=== PATIENT | female | born 1935 | race Caucasian/White ===

== ENCOUNTER 2016-03-12 09:44 | Inpatient (IN) | payer MEDICARE, OTHER ==
[~2016-03-12] VITALS: Ht 157.5 cm; Wt 76.0 kg
[2016-03-12 10:19] LABS: BASOPHILS 0.3 % (0.0-2.0); EOSINOPHILS 0 % (0-7); HEMATOCRIT 30.6 % (36.0-48.0); HEMOGLOBIN 10.5 g/dL (12-16); IMMATURE GRANULOCYTES 0.6 % (0-5); MCH 32.2 pg (26.0-34.0); MCHC 34.3 g/dL (31.0-37.0); MCV 93.9 fL (80.0-100.0); MEAN PLATELET VOLUME 8.9 fL (7.4-10.4); MONOCYTES 3.5 % (2-11); NEUTROPHILS 93.6 % (40-80); PLATELET COUNT 325 10x3/uL (130-400); RBC 3.26 10x6/uL (4.00-5.40); RDW 12.8 % (11.5-14.5); WBC 19.5 10x3/uL (4.8-10.8)
[2016-03-12 10:31] LABS: ALBUMIN 2.6 g/dL (3.4-5.0); ANION GAP 13.3 mmol/L (8-16); BILIRUBIN - TOTAL 1.5 mg/dL (0.2-1.3); CALCIUM 8.9 mg/dL (8.5-10.1); CARBON DIOXIDE 25.5 mmol/L (21.0-32.0); POTASSIUM - SERUM 3.8 mmol/L (3.5-5.1)
[2016-03-12 11:16] LABS: UDS - AMPHET NEGATIVE QUAL (NEGATIVE); UDS - BARB NEGATIVE QUAL (NEGATIVE); UDS - BENZO NEGATIVE QUAL (NEGATIVE); UDS - COCAINE NEGATIVE QUAL (NEGATIVE); UDS - METH NEGATIVE QUAL (NEGATIVE); UDS - OPIATE NEGATIVE QUAL (NEGATIVE); UDS - PCP NEGATIVE QUAL (NEGATIVE); UDS - THC NEGATIVE QUAL (NEGATIVE)
[2016-03-12 11:31] LABS: APPEARANCE HAZY (CLEAR); BACTERIA MANY /hpf (NONE SEEN); BILIRUBIN NEGATIVE (NEGATIVE); COLOR DK YELLOW (YELLOW); EPITHELIAL CELLS OCC /hpf (0-5); GLUCOSE NEGATIVE (NEGATIVE); KETONE NEGATIVE (NEGATIVE); LEUKOCYTE ESTERASE 2+ (NEGATIVE); MUCUS <1+ /lpf (NONE SEEN); NITRITE NEGATIVE (NEGATIVE); PROTEIN 2+ mg/dL (NEGATIVE); UROBILINOGEN NORMAL (NORMAL); WHITE CELLS - URINE >50 /hpf (0-5)
[2016-03-12 11:44] LABS: MAGNESIUM - SERUM 1.2 mg/dL (1.8-2.4)
[2016-03-12 11:52] LABS: TROPONIN-I 0.256 ng/mL (0.000-0.060)
--- NOTE | 2016-03-12 14:10 | NUR ---
ARRIVE TO ROOM VIA STRETCHER FROM ER ACCOMPANIED BY NURSE AND FAMILY MEMBERS. ALERT AND ORIENTED X4. HAVING PROBLEMS SPEAKING. DENIES SOB OR PAIN. RECIEVES LOVENOX INJ. CONTINUE PLAN OF CARE AND ADMISSION PROCESS. BED ALARM ON. TWO SIDERAILS UP. UP WITH ASSIST. HAS CANE AT HOME.
[2016-03-12] MEDS ORDERED: BYSTOLIC10 MG PO (14:16)
[2016-03-12] MEDS ORDERED: SYNTHROID100 MCG PO (14:20)
[2016-03-12] MEDS ORDERED: CATAPRES0.1 MG PO (14:22)
[2016-03-12] MEDS ORDERED: NEXIUM20 MG PO (14:22)
[2016-03-12] MEDS ORDERED: CELEBREX200 MG PO (14:23)
[2016-03-12 14:58] VITALS: BP 112/61; BMI 30.6
[2016-03-12 20:50] VITALS: BP 117/54
[2016-03-13 00:37] VITALS: BP 106/73
[2016-03-13 04:31] VITALS: BP 134/76
[2016-03-13 05:20] LABS: BASOPHILS 0.4 % (0.0-2.0); EOSINOPHILS 0.2 % (0-7); HEMATOCRIT 29.5 % (36.0-48.0); HEMOGLOBIN 9.7 g/dL (12-16); IMMATURE GRANULOCYTES 0.3 % (0-5); LYMPHOCYTES 8.2 % (15-50); MCH 31.9 pg (26.0-34.0); MCHC 32.9 g/dL (31.0-37.0); MEAN PLATELET VOLUME 9.1 fL (7.4-10.4); MONOCYTES 8.5 % (2-11); NEUTROPHILS 82.4 % (40-80); PLATELET COUNT 274 10x3/uL (130-400); RBC 3.04 10x6/uL (4.00-5.40)
[2016-03-13 05:46] LABS: ANION GAP 12.1 mmol/L (8-16); CALCIUM 8.5 mg/dL (8.5-10.1); CARBON DIOXIDE 27.8 mmol/L (21.0-32.0); MAGNESIUM - SERUM 1.3 mg/dL (1.8-2.4); POTASSIUM - SERUM 3.9 mmol/L (3.5-5.1)
--- NOTE | 2016-03-13 07:33 | HP ---
PATIENT: FRANK CINTRON MEDICAL RECORD: [id number] ACCOUNT: [id number] LOCATION:[address] : 33 ADMISSION DATE: 03/12/16 HISTORY AND PHYSICAL EXAMINATION REASON FOR ADMISSION: Confusion and fever. HISTORY OF PRESENT ILLNESS: The patient is an 81-year-old female and previously in good health who had a UTI last week. She finished Macrodantin with improvement in symptoms. She felt well until last night, she had been nauseated and this morning was vomiting and confused. She complained of some vague right flank pain. She was in the Emergency Room where she was febrile with temperature of 101 and gross pyuria. Her daughter says she has little trouble expressing herself this morning, understands everything, but has little trouble finding words. She has no other neurologic deficits. Her daughter states she had urosepsis a year ago and had some neurologic events that resolved with improvement with antibiotics. She never had a renal workup previously. PAST MEDICAL HISTORY: Essential hypertension, hypothyroidism, osteoarthritis of knees postmenopausal and sepsis in 2014 with cellulitis. PAST SURGICAL HISTORY: She had left total hip replacement in 2005. SOCIAL HISTORY: , recently moved here to live close to her daughter from [place], nonsmoker and drinks occasional glass of wine. ALLERGIES: NORVASC. FAMILY HISTORY: Osteoarthritis in both parents. Father had COPD. Mother with hypertension, COPD and pancreatic cancer. Brother with lung cancer. HOME MEDICATIONS: Bystolic ____ a day, Celebrex 200 mg daily, clonidine 0.1 p.r.n. systolic pressure greater than 170, Lasix 40 mg p.o. q.a.m., GNP vitamin D 400 units p.o. daily, B12 500 mcg p.o. daily, HCTZ 12.5 mg p.o. q.a.m., Synthroid 100 mcg p.o. daily, losartan 100 mg p.o. daily, Nexium 40 mg a day, PreserVision AREDS tablet 1 p.o. b.i.d. and tobramycin 0.3% ophthalmic drops to eye p.r.n. REVIEW OF SYSTEMS: GENERAL: She has felt fatigued and fever for the last 12 hours with some confusion. No headache. HEENT: No recent visual change, sinus congestion or sore throat. RESPIRATORY: No SOB or cough. CARDIAC: No exertional chest pain, claudication or edema. GASTROINTESTINAL: She has had some nausea with intermittent vomiting in the last 12 hours. No melena, hematemesis or abdominal pain. GENITOURINARY: She has had urinary urgency without dysuria or ____. Denies hematuria. MUSCULOSKELETAL: Chronic arthralgias in both of her knees. ENDOCRINE: Denies polyuria, polydipsia, heat or cold intolerance. NEUROLOGIC: She has some confusion and trouble finding words this morning, but no neurologic deficits appreciated. Her daughter states she has similar symptoms with her sepsis last year. INTEGUMENT: Denies rash or itching. HISTORY AND PHYSICAL [id number] ABDULAZIZFRANK PHYSICAL EXAMINATION: VITAL SIGNS: Blood pressure 100/60, heart rate is 90 and regular, temperature 101 degrees Fahrenheit. GENERAL: The patient is in no acute distress. HEENT: She is normocephalic. Eyes are clear. Sclerae nonicteric. Mucous membranes somewhat dry. No oral lesions noted. NECK: Supple, without bruits or JVD. CHEST: Clear without wheeze or rales. HEART: Regular rate without MGR. PMI appropriate. ABDOMEN: Soft, mildly obese. She is somewhat tender in the right flank. Left flank is unremarkable. Bowel sounds are active. Abdomen is nontender. GENITOURINARY: Unremarkable. PELVIC: Deferred. EXTREMITIES: She has crepitus in both knees with flexion and extension. No edema is appreciated. SKIN: Shows no petechiae or rash. IMAGING: Chest x-ray shows no acute cardiopulmonary disease. LABORATORY DATA: White count was 19.5 with 94% neutrophils, H&H is 10.5 and 30.6 respectively. Chemistry: Sodium is low at 133. GFR is 56 cc per minute. Glucose 107. Lactic acid is high at 2.9 initially and now is 1.1 three hours later. Calcium is normal. Magnesium is low at 1.2. Alkaline phosphatase is 179. Troponin is 0.256. ProBNP is 5906. Urinalysis is hazy with greater than 50 white cells per high power field, many bacteria. Urine drug screen is negative. ASSESSMENT: 1. Urinary tract infection, possibly urosepsis. 2. Hypomagnesemia. 3. Hypotension with history of hypertension. 4. Mild expressive aphasia, positive sepsis and lactic acidosis. PLAN: Hold antihypertensives. We will give IV fluids tonight. Culture blood and urine. She was placed on Levaquin and gentamicin. We will schedule renal ultrasound in the morning to rule out pyelonephritis. Additionally, if her vital signs did not improve, we will schedule CT of brain. Results and course discussed with the patient and daughter. TRANSINT:[id number] Voice Confirmation ID: [id number] DOCUMENT ID: [id number] OLE OTOOLE MD at 0733 CC: [id number] DICTATION DATE: 03/12/161815 SALES SUPPORT ENGINEER: 03/12/16[address] [facility] [address] [place] [address]
[2016-03-13 08:11] LABS: % SATURATION 8 % (15-55); IRON 19 ug/dl (35-150); TOTAL IRON BIND CAPACITY 212 ug/dl (260-445); UNSAT IRON BIND CAPACITY 193 ug/dl (150-375)
[2016-03-13 08:21] LABS: FERRITIN 356 ng/mL (3-244); LDH 175 U/L (81-234)
[2016-03-13 08:40] VITALS: BP 148/70
--- NOTE | 2016-03-13 08:52 | NUR ---
IV resited to different vein in left hand due to swelling and pain at site. Jennifer Saldivar RN
--- NOTE | 2016-03-13 10:45 | NUR ---
RESTING QUIETLY WITHOUT DISTRESS. ASSESSMENT DONE. WILL CONTINUE TO MONITOR
[2016-03-13 12:38] VITALS: BP 92/45
--- NOTE | 2016-03-13 13:35 | NUR ---
SITTING UP IN BED. ALTAGRACIA WELL. FAMILY AT BEDSIDE.
[2016-03-13 13:55] VITALS: Ht 157.5 cm; Wt 76.0 kg
--- NOTE | 2016-03-13 15:16 | NUR ---
PATIENT RESTING IN HER BED, HOB UP 45 DEGREES. INTRODUCED SELF AND DISCUSSED POC WITH DAUGHTER WHO IS AT THE BEDSIDE. DAUGHTER PROFESSES A GREAT IMPROVEMENT IN MOTHER'S COGNITIVE ABILITY FROM YESTERDAY. SHE IS ANXIOUS TO HAVE HER WALK WITH PT. CALVERT CATHETER IS PATENT. IVF INFUSING PER ORDERS.
[2016-03-13 16:07] VITALS: BP 121/61
--- NOTE | 2016-03-13 19:03 | NUR ---
PATIENT ASSISTED UP TO THE BEDSIDE CHAIR. HER IVF CONTINUE TO INFUSE PER ORDERS. SHE IS WITHOUT C/O AT THIS TIME. IV PUMP DOES BEEP FREQUENTLY, SITED IN HER LEFT HAND. WILL CONSIDER RESITING IT.
[2016-03-13 22:30] VITALS: BP 124/70
--- NOTE | 2016-03-13 22:41 | NUR ---
PT ASSESSMENT COMPLETED PT LAYING IN BED NO DISTRESS OBSERVED AT THIS TIME PIV INFUSING NS @ 100 ORDERED 22G TO RIGHT HAND, RESPERATIONS EVEN AND UNLABORED ON ROOM AIR, LUNG SOUNDS CLEAR BILATERAL ALL LOBES, BED LOW AND LOCKED SRX2 AND CALL LIGHT IN REACH WILL CONTINUE TO MONITOR
[2016-03-14 02:50] VITALS: BP 130/69
[2016-03-14 06:05] VITALS: BP 148/66
[2016-03-14 06:52] LABS: ANION GAP 11.8 mmol/L (8-16); CARBON DIOXIDE 26.9 mmol/L (21.0-32.0); CREATININE - SERUM 0.9 mg/dL (0.6-1.3); MAGNESIUM - SERUM 1.5 mg/dL (1.8-2.4); POTASSIUM - SERUM 3.7 mmol/L (3.5-5.1)
--- NOTE | 2016-03-14 07:25 | NUR ---
PT SITTING UP IN BED SLEEPING NO S/S DISTRESS WILL CONTINUE TO MONITOR.
[2016-03-14 08:17] LABS: FOLATE (FOLIC ACID) - SERUM 7.3 ng/mL (>3.0)
[2016-03-14 08:21] VITALS: BP 130/76
--- NOTE | 2016-03-14 09:15 | NUR ---
INITIATED BLADDER TRAINING. PT TO LET ME KNOW WHEN SHE HAS THE URGE TO URINATE. WILL CONTINUE BLADDER TRAINING THROUGHOUT THE DAY.
--- NOTE | 2016-03-14 11:15 | NUR ---
RELEASED PT CALVERT CLAMP, LEAVING UNCLAMPED FOR BLADDER TO DRAIN. PT DID NOT HAVE URGE TO URINATE.
--- NOTE | 2016-03-14 12:00 | NUR ---
RECLAMPED PT CALVERT TO CONTINUE BLADDER TRAINING.
[2016-03-14 12:04] VITALS: BP 141/69
--- NOTE | 2016-03-14 13:00 | NUR ---
RELEASED CALVERT CLAMP TO ALLOW BLADDER TO DRAIN. PT DID NOT HAVE URGE.
--- NOTE | 2016-03-14 13:39 | NUR ---
RECLAMPED CALVERT TO CONTINUE BLADDER TRAINING.
--- NOTE | 2016-03-14 15:30 | NUR ---
REMOVED CLAMP SO BLADDER CAN EMPTY.
--- NOTE | 2016-03-14 15:40 | NUR ---
PT SITTING UP TO CHAIR PT HAD A GOOD WAKL WITH THERAPY TODAY. SHE DENIES NEEDS AT THIS TIME. JUSTINE CYCLE TOURING GUIDE ASKED PT EARLIER IF SHE WANTED TO BE RESITED, SHE REFUSED. PT FAMILY HAS BEEN CO THAT THE IV PUMP HAS BEEN BEEPING BECAUSE OF PT IV SITE. NO FAMILY HERE NOW. WILL CONTINUE TO MONITOR.
[2016-03-14 15:45] VITALS: BP 135/92
--- NOTE | 2016-03-14 16:00 | NUR ---
CLAMPED CALVERT TO CONTINUE BLADDER TRAINING.
--- NOTE | 2016-03-14 17:05 | NUR ---
UNCLAMPED CALVERT TO EMPTY BLADDER
--- NOTE | 2016-03-14 18:04 | NUR ---
CLAMPED PT CALVERT CATHETER AGAIN TO CONTINUE BLADDER TRAINING SON AT BEDSIDE PT DENIES NEEDS OTHER THAN JELLO, GIVEN.
--- NOTE | 2016-03-14 19:30 | NUR ---
UP TO BR AND BACK TO BED WITH ASSIST OF STAFF AND WALKER. ALTAGRACIA WELL. DID NOT HAVE BM AT THIS TIME. CALVERT CATH REMAIN CLAMPED FOR BLADDER TRAINING. DENIES URGE TO PEE.LEFT HAND SL INTACT WITH NO R/S NOTED AT SITE. CONFUSED, EASILY REORIENTED. ON ROOM AIR. ON LOVENOX, SCDS NOT IN USE. HOB UP SR UP X2, C/L IN REACH. SON VISITING AT BEDSIDE. WILL CONTINUE TO MONITOR.
[2016-03-14 20:00] VITALS: BP 146/89
--- NOTE | 2016-03-14 20:00 | NUR ---
CALVERT UNCLAMPED, WILL LEAVE UNCLSMPED FOR ABOUT 45 MINUTES. ALTAGRACIA WELL. C/L IN REACH.
--- NOTE | 2016-03-14 21:45 | NUR ---
CALVERT RECLAMPED AT THIS TIME. C/L IN REACH.
--- NOTE | 2016-03-14 23:45 | NUR ---
CALVERT CATH UNCLAMPED AT THIS TIME. ALTAGRACIA WELL. C/L IN REACH.
[2016-03-15] VITALS (7 sets, daily range): BP systolic 119–149; BP diastolic 62–87
--- NOTE | 2016-03-15 00:42 | NUR ---
CALVERT CATH RECLAMPED FOR BLADDER TRAINING. ALTAGRACIA WELL. C/L IN REACH.
[2016-03-15 06:43] LABS: ANION GAP 10.3 mmol/L (8-16); CALCIUM 8.1 mg/dL (8.5-10.1); CARBON DIOXIDE 27.3 mmol/L (21.0-32.0); CREATININE - SERUM 0.8 mg/dL (0.6-1.3); MAGNESIUM - SERUM 1.6 mg/dL (1.8-2.4); PHOSPHOROUS 3.5 mg/dL (2.5-4.9); POTASSIUM - SERUM 3.6 mmol/L (3.5-5.1)
[2016-03-15 06:45] LABS: EOSINOPHILS 2.4 % (0-7); HEMATOCRIT 27.5 % (36.0-48.0); IMMATURE GRANULOCYTES 0.2 % (0-5); LYMPHOCYTES 24.3 % (15-50); MCH 31.5 pg (26.0-34.0); MCHC 32.7 g/dL (31.0-37.0); MCV 96.2 fL (80.0-100.0); MEAN PLATELET VOLUME 9.2 fL (7.4-10.4); MONOCYTES 13.1 % (2-11); PLATELET COUNT 328 10x3/uL (130-400); RBC 2.86 10x6/uL (4.00-5.40); RDW 12.8 % (11.5-14.5)
--- NOTE | 2016-03-15 07:15 | NUR ---
RECIEVED REPORT ON PATIENT,PATIENT IS ALERT AND ORIENTED AT THIS TIME. PATIENT HAS A L WRIST IV THAT IS SL AT THIS TIME. PATIENT DENIES ANY NEEDS OR PAIN AT THIS TIME. PATIENT DENIES ANY NEEDS OR PAIN AT THIS TIME. WILL CONT TO MONITOR. BED LOW AND LOCKED. CALL LIGHT IN REACH. CPOC
[2016-03-15 08:15] LABS: HELICOBACTER PYLORI IGG NEGATIVE (NEGATIVE)
--- NOTE | 2016-03-15 08:30 | NUR ---
CONTINUING BLADDER TRAINING WITH PATIENT, EDUCATION GIVEN. CALVERT IS CLAMPED. CPOC
--- NOTE | 2016-03-15 09:30 | NUR ---
MORNING MEDICATION GIVEN, ASSESSMENT DONE. PATIENT DENIES ANY PAIN AT THIS TIME. WILL CONT TO MONITOR PATIENT.
--- NOTE | 2016-03-15 11:00 | NUR ---
PATIENT SITTING UP IN CHAIR AT THIS TIME. DENIES ANY PAIN OR NEEDS. CPOC
--- NOTE | 2016-03-15 12:30 | NUR ---
PATIENT STATED SHE HAS THE URGE TO URINATE. CALVERT UNCLAMPED. PATIENT URINATED 100ML. WILL PULL CALVERT. CPOC
--- NOTE | 2016-03-15 13:15 | NUR ---
PATIENT CALVERT DC, NO COMPLICATIONS. DEFLATED BALLOON WITH 10CC OF SALINE. PATIENT INSTRUCTED ON WHEN SHE HAS THE URGE TO LET US KNOW SO WE CAN HELP HER TO THE RESTROOM. STATES UNDERSTANDING. CPOC
--- NOTE | 2016-03-15 14:00 | NUR ---
Nutrition Follow Up: Chart reviewed. Diet: Regular PO Intake: 45% (3 meal avg) Wt stable I<O +BM 03/14/16 Meds and labs noted Pt with poor po intake at this time. Will send Ensure with meals. Rec continue current diet. RD following.
--- NOTE | 2016-03-15 16:00 | NUR ---
ASSISTED PATIENT TO BATHROOM MIN ASSIST. PATIENT USES WALKER. PATIENT BACK TO CHAIR AT THIS TIME. CPOC
--- NOTE | 2016-03-15 17:48 | NUR ---
PATIENT SITTING UP IN CHAIR EATING DINNER, DENIES ANY PAIN OR NEEDS. CPOC
--- NOTE | 2016-03-15 17:59 | NUR ---
Patient Name: FRANK CINTRON Admission Status: ER Accout number: [id number] Admission Date: 03-12-2016 : 1935 Admission Diagnosis:FEVER, UNSPECIFIED Attending: MARSHA Current LOS: 3 Anticipated DC Date: Planned Disposition: Home Health Service Primary Insurance: MEDICARE A & B Discharge Planning Comments: * Is the patient Alert and Oriented? Yes 0 * How many steps to enter\exit or inside your home? 4 0 * PCP DR. OTOOLE 0 * Pharmacy [facility] 0 * Preadmission Environment Home with Family 0 * ADLs Independent 0 * Equipment Cane Walker 0 * Other Equipment NO MEDICAL EQUIPMENT PROVIDER PREFERENCE 0 * List name and contact numbers for known caregivers / representatives who currently or will assist patient after discharge: CATRINA BERRIOS, DAUGHTER, 0 * Community resources currently utilized None 0 * Please name any agencies selected above. NONE 0 * Additional services required to return to the preadmission environment? No 0 * Can the patient safely return to the preadmission environment? Yes 0 * Has this patient been hospitalized within the prior 30 days at any hospital? No 0 CM MET WITH PT IN ROOM TO DISCUSS DISCHARGE PLANNING AND NEEDS. PT REPORTS LIVING AT HOME INDEPENDENTLY WITH FAMILY. PT REPORTS BEING CAREGIVER FOR HER ELDERLY SISTER IN LAW. PT HAS CANE AND WALKER WITH NO MEDICAL EQUIPMENT PROVIDER. PT HAS NO OUTSIDE SERVICES ASSISTING IN THE HOME. CM DISCUSSED AVAILABILITY OF HOME HEALTH, REHAB SERVICES AND MEDICAL EQUIPMENT. PT REPORTS UNKNOWN DISCHARGE NEEDS, REPORTS HER DAUGHTER WILL PICK HER UP FOR DISCHARGE HOME. PT IS CONSIDERING HOME HEALTH FOR DISCHARGE HOME FOR NURSING AND PHYSICAL THERAPY. CM WILL MAKE ARRANGEMENTS IF PHYSICAN AGREES WITH THE NEED AND PROVIDES ORDERS. Bricklayer: Dheeraj Joseph
--- NOTE | 2016-03-15 19:47 | NUR ---
UP WITH ASSIST TO BR WITH WALKER.
--- NOTE | 2016-03-15 20:48 | NUR ---
HS MEDS GIVEN, PT DENIES PAIN OR NEEDS, BED LOW, CL IN REACH. WILL CONT TO MONITOR.
--- NOTE | 2016-03-16 01:13 | NUR ---
PT RESTING SOUNDLY WITHOUT C/O OR DISTRESS NOTED. CALL LIGHT IS WITHIN REACH. NO NEEDS VOICED. WILL MONITOR.
[2016-03-16 04:00] VITALS: BP 164/93
[2016-03-16 06:53] LABS: BASOPHILS 2.5 % (0.0-2.0); EOSINOPHILS 1.4 % (0-7); HEMATOCRIT 30.2 % (36.0-48.0); IMMATURE GRANULOCYTES 0.4 % (0-5); LYMPHOCYTES 27.8 % (15-50); MCH 31.3 pg (26.0-34.0); MCHC 33.1 g/dL (31.0-37.0); MCV 94.4 fL (80.0-100.0); MEAN PLATELET VOLUME 9.1 fL (7.4-10.4); MONOCYTES 13.3 % (2-11); NEUTROPHILS 54.6 % (40-80); PLATELET COUNT 308 10x3/uL (130-400); RDW 12.7 % (11.5-14.5); WBC 4.9 10x3/uL (4.8-10.8)
[2016-03-16 07:13] LABS: ANION GAP 10.1 mmol/L (8-16); CALCIUM 9.1 mg/dL (8.5-10.1); CARBON DIOXIDE 27.7 mmol/L (21.0-32.0); CREATININE - SERUM 0.9 mg/dL (0.6-1.3); MAGNESIUM - SERUM 1.7 mg/dL (1.8-2.4); POTASSIUM - SERUM 3.8 mmol/L (3.5-5.1)
--- NOTE | 2016-03-16 07:15 | NUR ---
RECEIVED REPORT. ASSUMED CARE OF PATIENT. CALL LIGHT WITH IN REACH. AWAKE, ALERT/ORIENTED. DENIES NEEDS AT THIS TIME. RESP EVEN AND UNLABORED. NO DISTRESS.
[2016-03-16 07:34] VITALS: BP 177/90
--- NOTE | 2016-03-16 07:40 | NUR ---
ASSISTED PATIENT TO RESTROOM. PATIENT ABLE TO AMBULATE WITH WALKER WITH MINIMAL ASSIST. ASSISTED PATIENT BACK TO BED. CALL LIGHT WITH IN REACH. NO DISTRESS.
[2016-03-16 12:13] VITALS: BP 168/90
--- NOTE | 2016-03-16 14:15 | NUR ---
PATIENT OOB TO CHAIR AT BEDSIDE. ASSISTED PATIENT TO RESTROOM AT THIS TIME. PATIENT WITH FEMALE VISITOR AT BEDSIDE. NO DISTRESS.
[2016-03-16 16:19] VITALS: BP 161/88
--- NOTE | 2016-03-16 18:34 | NUR ---
RESTING IN BED WITH EYES CLOSED. CALL LIGHT WITH IN REACH. DENIES NEEDS. NO DISTRESS.
--- NOTE | 2016-03-16 19:34 | NUR ---
RECEIVED REPORT, HELP PT OUT OF RESTROOM,TO CHAIR, IV-L. WRIST- NS@ 30, PT IS A&O, CALL LIGHT IN REACH
[2016-03-16 20:49] VITALS: BP 180/82
--- NOTE | 2016-03-17 00:11 | NUR ---
PT RESTING WITH EYES CLOSED. RESP EVEN AND REGULAR. SR UP X2, CALL LIGHT WITHIN REACH.
[2016-03-17 00:36] VITALS: BP 142/87
--- NOTE | 2016-03-17 01:21 | NUR ---
ASSISTED TO RESTROOM
[2016-03-17 04:39] VITALS: BP 150/91
--- NOTE | 2016-03-17 06:42 | NUR ---
RECEIVED REPORT FROM BUTTONHOLE MAKER HAND NURSE, ELIE YBARRA. PT IN BED, STATES THAT SHE HAD A HEADACHE, WILL CHECK TO SEE IF SHE HAS ANYTHING ORDER. PT DENIES ANY OTHER NEEDS AT THIS TIME. CALL LIGHT IN REACH, NAD NOTED, WILL CONTINUE TO MONITOR.
--- NOTE | 2016-03-17 09:00 | NUR ---
PT IV, LOOKS RED AND IT HURTS TO TOUCH. IV INFILTRATED, D/C LEFT FA IV, TIP INTACT. INFOMRED PT THAT I WAS GOING TO HAVE TO START NEW IV. PT STATES " DO WE HAVE TOO, LAST TIME IT TOOK ABOUT 2 HOURS TO GET THIS IV STARTED". INFORMED PT THAT THE ONLY MEDICATIONS THAT SHE WAS GETTING IV WAS LEVAQUIN, PT STATED IF THAT COULD BE CHANGED TO PILL FORM. I INFOMRED PT THAT I COULD CALL THE DOCTOR AND GET CHANGED FROM IV TO PO. PT STATED "THAT WOULD BE MUCH BETTER". WILL CALL THE DOCTOR AUTO BUMPER STRAIGHTENER LET THEM ABOUT PT'S REQUEST.
--- NOTE | 2016-03-17 09:30 | NUR ---
ADMINISTERED MORNING MEDICATIONS AND HELPED PT TO THE BATHROOM. PT DENIES ANY OTHER NEEDS AT THIS TIME. CALL LIGHT IN REACH, NAD NOTED, WILL CONTINUE TO MONITOR.
[2016-03-17 09:31] VITALS: BP 177/92
--- NOTE | 2016-03-17 11:30 | NUR ---
1117- PAGED THE DOCTOR LOCK AND DAM REPAIRER FOR DR. OTOOLE. WAITING ON HIM TO CALL BACK. 1131- RECEIVED CALL BACK FROM DR. NGUYEN, INFORMED HIM THAT PT'S IV INFILTRATED AND THAT THE ONLY THING SHE HAS IV IS LEVAQUIN AND PT WANTS TO KNOW IF THE LEVAQUIN CAN BE CHANGED TO PILL, SO SHE DOESN'T HAVE TO HAVE ANOTHER IV, RESTARTED. DR. NGUYEN STATED THAT HE WILL BE UP HERE IN ABOUT 30MIN AND CHANGE THE ORDER.
--- NOTE | 2016-03-17 12:30 | NUR ---
DAUGHTER AT BEDSIDE, REQUESTED FOR IV TO BE STARTED, WANTS PT TO GET IV ANTIBIOTICS INSTEAD OF PO, DAUGHTER ALSO REQUESTED FOR SOMEONE THAT IS REALLY GOOD TO START IV ON PT. CALLED ABEL LINING FINISHER, AND ASKED HIM TO COME AND START IV. ABEL TRIED TO START IV TWICE AND BOTH TIMES THE IV INFILTRATED. ABEL STATED THAT WE WOULD NOTIFY THE DR. NGUYEN ABOUT BEING UNSUCCESFULL AT STARTING NEW IV.
[2016-03-17 12:55] VITALS: BP 146/89
--- NOTE | 2016-03-17 16:02 | NUR ---
CALLED PHARMACY AND ASKED THEM TO CHANGE THE TIME ON THE LEVAQUIN IV TO BE DO AT 1800, SINCE PT'S IV IS OUT AND WE STILL HAVE NOT BEEN ABLE TO START A NEW IV.
[2016-03-17 16:59] VITALS: BP 144/92
--- NOTE | 2016-03-17 17:35 | NUR ---
NEW 22G IV STARTED TO LEFT AC ONE STICK. STARTED BY LYNNE DELGADILLO. PT TOLERATED PROCEDURE WELL. IVPB LEVAQUIN STARTED AT THIS TIME. HELPED PT TO BATHROOM, PT DENIES ANY OTHER NEEDS AT THIS TIME. CALL LIGHT IN REACH, NAD NOTED, WILL CONTINUE TO MONITOR.
--- NOTE | 2016-03-17 18:34 | NUR ---
REHAB PRESCREENING Rehab referral received and chart reviewed. Will visit with patient and family tomorrow to establish prior level of function and desire for IRF if patient meets criteria. Thank you for this referral! Lavonne Cunningham, [facility] PD/Rehab [facility]
--- NOTE | 2016-03-17 19:56 | NUR ---
RESUMED CARE OF PT, LYING IN BED RESPIRAITONS EVEN AND UNLABORED ON ROOM AIR. LEFT AC SALINE LOCKED. NO NEEDS VOICED AT THIS TIME. WILL CONTINUE TO MONITOR. CALL LIGHT IN REACH. SEE NURSE ASSESSMENT.
--- NOTE | 2016-03-18 00:22 | NUR ---
TYELENOL 500MG GIVEN FOR HEADACHE, WILL CONTINUE TO MONITOR.
[2016-03-18 02:34] VITALS: BP 151/80
[2016-03-18 04:44] VITALS: BP 148/72
--- NOTE | 2016-03-18 06:44 | NUR ---
NO CHANGES FROM PREVIOUS ASSESSMENT, CALL LIGHT IN REACH.
[2016-03-18 08:00] VITALS: BP 145/87; BP 91/31
--- NOTE | 2016-03-18 09:30 | NUR ---
RECEIVED NOTIFICATION THAT PT WAS TO BE PLACED ON CONTACT ISOLATION PER RONNI MCCLURE OF [place] IN BLOOD AND URINE. NO OTHER NEEDS AT THIS TIME. WILL CONTINUE TO MONITOR.
--- NOTE | 2016-03-18 10:19 | NUR ---
PT IS ALERT. ASSESSMENT DONE PER FLOWSHEET. NO CO PAIN AT THIS TIME. WILL CONTINUE TO MONTIOR.
[2016-03-18 11:08] VITALS: BP 114/65
--- NOTE | 2016-03-18 13:03 | NUR ---
Patient Name: FRANK CINTRON Encounter No: [id number] : 1935 Primary Insurance: MEDICARE A & B Anticipated DC Date: Planned Disposition: Home Health Service External Planned Provider: TO BE DETERMINED DCP follow-up note: CM SPOKE TO RADHA OF PHYSICAL THERAPY WHO REPORTS HE IS SIGNING OFF, PT AMBULATED 250 FEET WITH NO ASSISTANCE OR BALANCE ISSUES. CM NOTIFIED MARIAM OF [facility]. CM SPOKE TO PT IN ROOM, NOTIFIED OF ABOVE, DISCUSSED NURSING HOME REHAB AND HOME HEALTH PHYSICAL THERAPY SERVICES. PT REPORTS PLAN TO RETURN HOME WITH HOME HEALTH. PT HAS NOT DISCUSSED PROVIDERS WITH HER DAUGHTER AND WANTS TO DO SO BEFORE MAKING ANY DECISION. CM PROVIDED PT WITH CHOICE LETTER WITH CM CONTACT INFORMATION WRITTEN ON IT. CM PROVIDED AND DISCUSSED IMPORTANT MESSAGE FROM MEDICARE. PT REFUSED TO SIGN REPORTING WANTING TO DISCUSS EVERYTHING WITH HER DAUGTHER BEFORE MAKING ANY DECISIONS OR SIGNING ANYTHING. PT ASKED FOR ICE WATER, AFTER CHECKING WITH BEDSIDE NURSE, CM PROVIDED ICE WATER REQUESTED BY PT. PT PLANS TO DISCHARGE HOME WITH HOME HEALTH F (NURSING AND PHYSICAL THERAPY). CM WILL MAKE ARRANGEMENTS IF PHYSICAN AGREES WITH THE NEED AND PROVIDES ORDERS. Youth Court Judge: Dheeraj Joseph
--- NOTE | 2016-03-18 13:20 | NUR ---
NO SS OF DISTRESSS AT THIS TIME. WILL CONTINUE TO MONITOR.
[2016-03-18] MEDS ORDERED: BYSTOLIC20 MG PO (14:10)
[2016-03-18] MEDS ORDERED: COZAAR50 MG PO (14:10)
[2016-03-18] MEDS ORDERED: LEVAQUIN500 MG PO (14:11)
[2016-03-18 15:09] VITALS: BP 102/48
--- NOTE | 2016-03-18 15:24 | NUR ---
Rehab Prescreening Consult recieved and the chart has been reviewed. According to notes she ambulated 250 ft with PT and had an order to discharge home. Anna Lee RN Clinical Liaison, Rehab
--- NOTE | 2016-03-18 15:48 | NUR ---
MORE Joseph spoke with the patient earlier this afternoon about home health. DR Stewart rounded this pm and spoke with the patient. She will accept home health. Patient was given patient choice form as she wanted to speak with her dtr before selecting home health provider. CM visited x2 for F/U. She has selected [facility]. POC obtained. IMM discussed. Patient understands and had no questions. Signature obtained. These forms were placed on the hard copy chart. TC to [place] and MORE spoke with the on-call nurse, Divya. MORE reviewed patient's hospital course. Faxed clinical. Divya states the patient will be seen 03/19 or 03/20. They will speak w/ the patient. CM advised patient of visit date.
--- NOTE | 2016-03-18 16:40 | NUR ---
PT DC TEACHING COMPLETE. IV REMOVED NO OTHER NEEDS.
== END 2016-03-18 16:40 | disposition home health service (06) | DRG 872 ==
LOC: D.ER 09:44 → D.M2 12:44
PROVIDERS: Emergency Medicine; ADMIT Family Medicine
PROC: 0T9B70Z Drainage of Bladder with Drainage Device, Via Natural or Artificial Opening (ICD-10-PCS; principal; 2016-03-12)
DX: A41.9 Sepsis, unspecified organism (principal); N39.0 Urinary tract infection, site not specified; R47.01 Aphasia; I10 Essential (primary) hypertension; E03.9 Hypothyroidism, unspecified; M17.9 Osteoarthritis of knee, unspecified; N95.9 Unspecified menopausal and perimenopausal disorder; E83.42 Hypomagnesemia; D64.9 Anemia, unspecified

== ENCOUNTER 2016-04-08 19:13 | Inpatient (IN) | payer MEDICARE, OTHER ==
[~2016-04-08] VITALS: Ht 157.5 cm; Wt 72.6 kg
[~2016-04-08 19:13] MED LIST: BYSTOLIC10 MG PO; BYSTOLIC20 MG PO; CATAPRES0.1 MG PO; CELEBREX200 MG PO; COZAAR50 MG PO; LEVAQUIN500 MG PO; NEXIUM20 MG PO; SYNTHROID100 MCG PO
[2016-04-08 19:50] LABS: BASOPHILS 0 % (0.0-2.0); EOSINOPHILS 0.4 % (0-7); HEMATOCRIT 32.8 % (36.0-48.0); HEMOGLOBIN 10.8 g/dL (12-16); IMMATURE GRANULOCYTES 0.8 % (0-5); LYMPHOCYTES 2.6 % (15-50); MCH 30.3 pg (26.0-34.0); MCHC 32.9 g/dL (31.0-37.0); MCV 91.9 fL (80.0-100.0); MEAN PLATELET VOLUME 9.1 fL (7.4-10.4); MONOCYTES 0.4 % (2-11); NEUTROPHILS 95.8 % (40-80); RBC 3.57 10x6/uL (4.00-5.40); WBC 2.7 10x3/uL (4.8-10.8)
[2016-04-08 19:54] LABS: PLATELET COUNT 177 10x3/uL (130-400)
[2016-04-08 20:07] LABS: ALBUMIN 3.2 g/dL (3.4-5.0); ANION GAP 14.9 mmol/L (8-16); BILIRUBIN - TOTAL 1.01 mg/dL (0.2-1.3); CARBON DIOXIDE 25.7 mmol/L (21.0-32.0); CREATININE - SERUM 1.2 mg/dL (0.6-1.3); POTASSIUM - SERUM 3.6 mmol/L (3.5-5.1); PROTEIN - SERUM 6.5 g/dL (6.4-8.2)
[2016-04-08 21:23] LABS: APPEARANCE CLEAR (CLEAR); BILIRUBIN NEGATIVE (NEGATIVE); COLOR YELLOW (YELLOW); GLUCOSE NEGATIVE (NEGATIVE); KETONE NEGATIVE (NEGATIVE); LEUKOCYTE ESTERASE NEGATIVE (NEGATIVE); NITRITE NEGATIVE (NEGATIVE); PROTEIN TRACE mg/dL (NEGATIVE); UROBILINOGEN NORMAL (NORMAL)
[2016-04-08 21:52] LABS: AMYLASE - SERUM 47 U/L (25-115); LIPASE 214 U/L (73-393)
--- NOTE | 2016-04-09 01:10 | NUR ---
RECEIVED PATIENT TO ROOM. ALERT AND ORIENTED. NO SIGNS OF DISTRESS NOTED. DAUGHTER PRESENT. ASSISTED TO BATHROOM WITHOUT DIFFICULTY. ORIENTED TO ROOM AND USE OF CALL LIGHT. DENIES ANY NEEDS AT THIS TIME. BED LOW. CALL LIGHT IN REACH.
[2016-04-09] MEDS ORDERED: FUROSEMIDE20 MG PO (01:13)
[2016-04-09] MEDS ORDERED: FUROSEMIDE40 MG PO (01:14)
[2016-04-09 02:04] VITALS: BP 140/53; BMI 29.3
[2016-04-09 04:00] VITALS: BP 126/61
--- NOTE | 2016-04-09 07:15 | NUR ---
REPORT RECEIVED FROM MARINATOR NURSE. CALL LIGHT IN REACH.
[2016-04-09 08:08] VITALS: BP 137/61
--- NOTE | 2016-04-09 09:30 | NUR ---
ASSESSMENT COMPLETED. CALL LIGHT IN REACH. WILL CONTINUE WITH PLAN OF CARE.
--- NOTE | 2016-04-09 10:40 | NUR ---
IV RESITED TO RIGHT WRIST WITH 22 GA X1 STICK. AM MEDS GIVEN. CALL LIGHT IN REACH.
[2016-04-09] MEDS ORDERED: ULTRAM50 MG PO (10:57)
--- NOTE | 2016-04-09 11:39 | NUR ---
TRAMADOL PO. CALL LIGHT IN REACH.
[2016-04-09 11:52] VITALS: BP 156/79
--- NOTE | 2016-04-09 13:07 | HP ---
PATIENT: FRANK CINTRON MEDICAL RECORD: [id number] ACCOUNT: [id number] LOCATION:[id number] : 33 ADMISSION DATE: 04/08/16 HISTORY AND PHYSICAL EXAMINATION REASON FOR ADMISSION: Fever. HISTORY OF PRESENT ILLNESS: The patient is an 81-year-old female, who was discharged after a 2-organism UTI urosepsis due to Escherichia coli on March 12. The patient had done well as seen in my office in followup 3 days ago. Urinalysis then was clear, but culture with recurrent E. coli. She was started on Macrodantin yesterday, took her first dose and promptly vomited. Later in the evening, she developed some fever to 99 degrees, so daughter brought her in the ER. On arrival, her temperature was 101. She denies any abdominal pain, but renal ultrasound on previous visit, she was noted to have cholelithiasis, to which she has been asymptomatic. She denies diarrhea, postprandial dyspepsia, bloating or fatty food intolerance. PAST MEDICAL HISTORY: Recurrent UTI, Escherichia coli with urosepsis recently, osteoarthritis of bilateral knees, essential hypertension, hypothyroidism, postmenopausal, and history of cellulitis with sepsis in 2013. PAST SURGICAL HISTORY: Left total hip replacement in 2005. SOCIAL HISTORY: She moved here, recently she lived with her daughter. She moved from [place] nonsmoker, drinks occasional glass of wine. She is . MEDICATIONS: Norvasc. FAMILY HISTORY: Both parents are . Father had COPD and arthritis. Mother had hypertension, COPD, and pancreatic cancer. One brother with lung cancer and he was a smoker. HOME MEDICATIONS: Macrodantin 100 mg p.o. b.i.d. only 1 dose taken, Celebrex 200 mg p.o. b.i.d., clonidine 0.1 mg p.r.n. systolic pressure greater than 170, Lasix 40 mg p.o. q.a.m., multivitamin 1 daily, vitamin D 400 units daily, vitamin B12 of 500 mcg p.o. daily, HCTZ 12.5 mg p.o. q.a.m., Synthroid 100 mcg p.o. q.a.m., losartan 100 mg p.o. daily, Nexium 40 mg daily, PreserVision AREDS tablets 1 p.o. b.i.d., tobramycin ophthalmic 0.3% drops to eye p.r.n. and Bystolic 20 mg a day. REVIEW OF SYSTEMS: GENERAL: She felt well until onset of nausea yesterday and fever. HEENT: No recent visual change, sinus congestion, sore throat or hearing difficulty. RESPIRATORY: No SOB or cough. CARDIAC: Claudication. There is no chest pain or palpitations. GASTROINTESTINAL: Nausea and vomited once after antibiotic, no change in stools, fatty food intolerance, or blood per rectum. Known cholelithiasis. ENDOCRINE: She denies polyuria, polydipsia, heat or cold intolerance. NEUROLOGIC: No history of stroke, TIA, or vascular headaches. INTEGUMENT: No rash or itching. MUSCULOSKELETAL: Chronic severe arthralgias in both knees. PSYCHIATRIC: She denies depressed mood. HISTORY AND PHYSICAL [id number] FRANK CINTRON PHYSICAL EXAMINATION: VITAL SIGNS: Temperature 101.0 Fahrenheit, pulse 82 and regular, respirations are 20, blood pressure ____ on room air. GENERAL: The patient is alert and oriented, in no acute distress. EYES: Clear. NECK: No bruits or masses. CHEST: Clear. HEART: Regular without murmur. ABDOMEN: Soft and nontender throughout. No organomegaly. RECTAL: Deferred: Deferred. EXTREMITIES: No CC&E. BACK: No CVA tenderness. SKIN: No rash appreciated. NEUROLOGIC: Oriented to person, place, and time. Cranial nerves intact. Gait normal. LABORATORY DATA: Shows a white count of 2700 with 95.8 polys, 2.6 lymphs. H&H is 10.8 and 32.8 respectively, platelet count 177,000. ____ potassium 3.6. Lactic acid was 3.2 initially and now 1.2. AST is 344, elevated ALT is 158, elevated alkaline phosphatase 184. Amylase and lipase were normal. ASSESSMENT: 1. Escherichia coli urinary tract infection, recurrent with possible sepsis. 2. Cholelithiasis with elevated liver transaminases. 3. Hypertension. 4. Osteoarthritis. 5. Hypothyroidism. PLAN: The patient admitted for IV fluids, IV Rocephin based on her previous MARY on urinalysis culture. We will follow liver functions, possibly repeat the liver ultrasound although she is currently asymptomatic. TRANSINT:[id number] Voice Confirmation ID: [id number] DOCUMENT ID: [id number] OLE OTOOLE MD at 1307 CC: [id number] DICTATION DATE: 04/09/16734 PHOTOGRAPHIC PLATE MAKER: 04/09/16 0834 ADM IN [place] [id number] [place] [id number]
[2016-04-09 13:17] VITALS: Ht 157.5 cm; Wt 72.6 kg
--- NOTE | 2016-04-09 13:20 | NUR ---
NO NEEDS VOICED AT THIS TIME. CALL LIGHT IN REACH. DAUGHTER IN ROOM.
--- NOTE | 2016-04-09 15:14 | NUR ---
SLEEPING QUIETLY AT PRESENT RESP EVEN AND UNLABORED AT PRESENT DENIES ANY NEEDS AT THIS TIME.
[2016-04-09 15:40] VITALS: BP 125/67
--- NOTE | 2016-04-09 16:33 | NUR ---
Patient Name: FRANK CINTRON Admission Status: ER Accout number: [id number] Admission Date: 04-08-2016 : 1935 Admission Diagnosis: Attending: MARHSA Current LOS: 1 Anticipated DC Date: 04-11-2016 Planned Disposition: Home with Home Health Primary Insurance: MEDICARE A & B Discharge Planning Comments: CM MET WITH PATIENT AND SON (KENY) REGARDING D/C NEEDS AND PLANS. PATIENT STATED SHE LIVES ALONE AND HER DAUGHTER LIVES HERE IN [place]. PATIENTS DAUGHTER (CATRINA) WILL DRIVE HER HOME AT DISCHARGE. PATIENT HAS 2 STEPS W/RAILS TO ENTER HOME AND 1 FLIGHT W/RAILS UPSTAIRS BUT DOES NOT USE THEM. PATIENTS PCP IS DR. OTOOLE AND PHARMACY IS [facility]. PATIENT STATED SHE IS INDEPENDENT WITH HER CARE AND HAS A WALKER, AND SHOWER CHAIR AT HOME. PATIENT IS CURRENT WITH [facility]. CM WILL CONTINUE TO FOLLOW PATIENT WITH D/C NEEDS AND PLANS. PCP DR. EN[facility]- [phone] KENY (SON) [phone] CATRINA (DAUGHTER) [phone] Technologist: Bailey Renee Is the patient Alert and Oriented? Yes 0 * How many steps to enter\exit or inside your home? 2 W/RAILS 0 * PCP DR. OTOOLE 0 * Pharmacy [facility] 0 * Preadmission Environment Home Alone 0 * ADLs Independent 0 * Equipment Shower Chair Walker 0 * List name and contact numbers for known caregivers / representatives who currently or will assist patient after discharge: KENY (SON) [phone] CATRINA (DAUGHTER) [phone] 0 * Community resources currently utilized Home Health 0 * Please name any agencies selected above. [facility] 0 * Additional services required to return to the preadmission environment? Yes 0 * Can the patient safely return to the preadmission environment? Yes 0 * Has this patient been hospitalized within the prior 30 days at any hospital? Yes 0 Grand Total: 0
--- NOTE | 2016-04-09 16:35 | NUR ---
MITCHEL PO. SON IN ROOM. CALL LIGHT IN REACH.
--- NOTE | 2016-04-09 18:19 | NUR ---
NO CDHANGES IN INITIAL ASSESSMENT. CALL LIGHT IN REACH. WILL CONTINUE WITH PLAN OF CARE.
[2016-04-09 20:00] VITALS: BP 124/69
--- NOTE | 2016-04-09 21:42 | NUR ---
PATIENT ASSISTED TO BATHROOM WITH STANDBY ASSIST. NO SIGNS OF DISTRESS NOTED. DENIES ANY NEEDS AT THIS TIME. SCHEDULED MEDICATIONS GIVEN ORDERED. BED LOW. CALL LIGHT IN REACH.
[2016-04-10] VITALS: BP 109/60
[2016-04-10 04:00] VITALS: BP 127/68
[2016-04-10 05:50] LABS: BASOPHILS 0.2 % (0.0-2.0); EOSINOPHILS 1.6 % (0-7); HEMATOCRIT 26.8 % (36.0-48.0); HEMOGLOBIN 8.9 g/dL (12-16); IMMATURE GRANULOCYTES 0.2 % (0-5); LYMPHOCYTES 11.2 % (15-50); MCH 30.4 pg (26.0-34.0); MCHC 33.2 g/dL (31.0-37.0); MCV 91.5 fL (80.0-100.0); MEAN PLATELET VOLUME 9.8 fL (7.4-10.4); MONOCYTES 5.3 % (2-11); NEUTROPHILS 81.5 % (40-80); RBC 2.93 10x6/uL (4.00-5.40); RDW 13.2 % (11.5-14.5)
[2016-04-10 05:52] LABS: PLATELET COUNT 123 10x3/uL (130-400); WBC 5.6 10x3/uL (4.8-10.8)
[2016-04-10 06:12] LABS: ANION GAP 13.1 mmol/L (8-16); CALCIUM 8.4 mg/dL (8.5-10.1); CARBON DIOXIDE 24.2 mmol/L (21.0-32.0); CHOL - HDL RATIO 1.9 ratio (2.3-4.1); LDL-HDL RATIO 0.8 ratio (1.5-3.5); POTASSIUM - SERUM 3.3 mmol/L (3.5-5.1)
--- NOTE | 2016-04-10 08:01 | NUR ---
AWAKE ALERT COLOR ADQ SKIN WARM AND DRY RESP EVEN AND UNLABORED AT PRESENT SON AT BEDSIDE AT PRESENT DENIES ANY NEEDS AT THIS TIME.
[2016-04-10 08:12] LABS: ALBUMIN 2.4 g/dL (3.4-5.0); BILIRUBIN - DIRECT 0.27 mg/dL (0.00-0.30); BILIRUBIN - INDIRECT 0.44 mg/dL (0.00-1.00); BILIRUBIN - TOTAL 0.71 mg/dL (0.2-1.3); PROTEIN - SERUM 5.5 g/dL (6.4-8.2)
[2016-04-10 08:14] VITALS: BP 126/61
[2016-04-10 09:18] LABS: HEPATITIS C ANTIBODY <0.1 (0.0-0.9)
[2016-04-10 11:45] VITALS: BP 128/76
--- NOTE | 2016-04-10 12:00 | NUR ---
LUNCH TAKEN 50% AT PRESENT ALTAGRACIA WELL N/C VOICED AT PRESENT.
--- NOTE | 2016-04-10 14:36 | NUR ---
SITTING UP ON SIDE OF BED AT PRESENT ALTAGRACIA WELL N/C VOICED AT PRESENT.
[2016-04-10 16:23] VITALS: BP 123/93
--- NOTE | 2016-04-10 19:00 | NUR ---
BEDSIDE REPORT RECEIVED AND CARE OF PT ASSUMED. PT LYING IN SEMI JAEGER'S POSITION WATCHING TV. IV IN RIGHT WRIST PATENT WITH NS INFUSING AT 100 ML / HR. WILL MONITOR CLOSELY FOR NEEDS.
[2016-04-10 20:00] VITALS: BP 137/74
--- NOTE | 2016-04-10 21:10 | NUR ---
HS MEDICATIONS GIVEN. WILL CONTINUE TO MONITOR FOR NEEDS.
--- NOTE | 2016-04-10 21:20 | NUR ---
HS SNACK OF X2 JELLO GIVEN...PT ALSO EATING PEANUT BUTTER CRACKERS FROM HOME.
[2016-04-11] VITALS: BP 147/72
[2016-04-11 04:00] VITALS: BP 135/73
[2016-04-11 05:49] LABS: BASOPHILS 0.3 % (0.0-2.0); HEMATOCRIT 27.4 % (36.0-48.0); HEMOGLOBIN 9.1 g/dL (12-16); IMMATURE GRANULOCYTES 0.2 % (0-5); MCH 30.3 pg (26.0-34.0); MCHC 33.2 g/dL (31.0-37.0); MCV 91.3 fL (80.0-100.0); MEAN PLATELET VOLUME 9.8 fL (7.4-10.4); MONOCYTES 11.1 % (2-11); NEUTROPHILS 67.4 % (40-80); PLATELET COUNT 126 10x3/uL (130-400); RDW 13.2 % (11.5-14.5); WBC 6.1 10x3/uL (4.8-10.8)
[2016-04-11 06:20] LABS: ALBUMIN 2.5 g/dL (3.4-5.0); ANION GAP 11.6 mmol/L (8-16); BILIRUBIN - DIRECT 0.23 mg/dL (0.00-0.30); BILIRUBIN - INDIRECT 0.28 mg/dL (0.00-1.00); BILIRUBIN - TOTAL 0.51 mg/dL (0.2-1.3); CALCIUM 8.4 mg/dL (8.5-10.1); CARBON DIOXIDE 26.7 mmol/L (21.0-32.0); CREATININE - SERUM 0.9 mg/dL (0.6-1.3); POTASSIUM - SERUM 3.3 mmol/L (3.5-5.1); PROTEIN - SERUM 5.2 g/dL (6.4-8.2)
--- NOTE | 2016-04-11 06:46 | NUR ---
POTASSIUM LEVEL 3.3 THIS AM REQUIRING COVERAGE PER ELECTROLYTE PROTOCOL. WILL GIVE 40 MEQ PO AND RE-CHECK LEVEL IN 4 HOURS.
[2016-04-11 08:20] VITALS: BP 131/69
--- NOTE | 2016-04-11 09:00 | NUR ---
ASSESSMENT PER FLOW SHEET.PT WITHOUT DISTRESS.PT IN ROOM TO AMBULATE.MONITOR
--- NOTE | 2016-04-11 11:30 | NUR ---
PAIN MEDS ORDERED PER MAY.
[2016-04-11 11:51] VITALS: BP 130/70
--- NOTE | 2016-04-11 12:55 | NUR ---
NUTRITION MONITORING & EVAL CHART REVIEWED, PT VISIT. TOLERATING AHA DIET. ~ 25% INTAKE MEALS. PT STATES "I AM EATING MUCH I WANT" NO COMPLAINTS. RD FOLLOWING
--- NOTE | 2016-04-11 14:52 | NUR ---
DAUGHTER HERE TO VISIT.PASSWORD CREATED WITH PT AND DAUGHTER.UPDATE ON PT STATUS.
--- NOTE | 2016-04-11 17:38 | NUR ---
REMAINS WITHOUT NEEDS.CALL LIGHT IN REACH
--- NOTE | 2016-04-11 18:49 | NUR ---
REMAINS WIHTOUT NEEDS,WITHOUT CHANGE.CONT PLAN OF CARE
[2016-04-11 20:00] VITALS: BP 140/77
--- NOTE | 2016-04-12 03:44 | NUR ---
PT RESTING QUIETLY, EYES CLOSED. RESP EASY, UNLABORED. NO DISTRESS NOTED. WILL CONTINUE TO MONITOR.
[2016-04-12 04:00] VITALS: BP 152/68
[2016-04-12 07:15] LABS: ANION GAP 8.9 mmol/L (8-16); CALCIUM 8.6 mg/dL (8.5-10.1); CARBON DIOXIDE 27.8 mmol/L (21.0-32.0); CREATININE - SERUM 0.8 mg/dL (0.6-1.3); POTASSIUM - SERUM 3.7 mmol/L (3.5-5.1)
[2016-04-12 07:50] VITALS: BP 144/62
[2016-04-12] MEDS ORDERED: FERROUS SULFAT325 MG PO (08:15)
[2016-04-12] MEDS ORDERED: MACRODANTIN100 MG PO (08:16)
[2016-04-12] MEDS ORDERED: CELEBREX200 MG PO (08:16)
--- NOTE | 2016-04-12 08:16 | NUR ---
AWAKE AND ALERT. ORIENTED X3. NO C/O THIS AM. DR. OTOOLE HERE. WILL D/C HOME TODAY. LUNGS ARE CLEAR BILATERALLLY NO COUGH NOTED. SKIN IS INTACT WITHOUT REDNESS. UP TO BR WITH RW MIN ASSIST. SL TO RIGHT HAND PATENT WITHOUT REDNESS AT INSERTION SITE. DENIES NEEDS. FAMILY AT BEDSIDE.
--- NOTE | 2016-04-12 08:53 | NUR ---
Patient Name: FRANK CINTRON Encounter No: [id number] : 1935 Primary Insurance: MEDICARE A & B Anticipated DC Date: 04-11-2016 Planned Disposition: Home with Home Health External Planned Provider: : DCP follow-up note: CM spoke with "Ellie" at [facility] ([phone]) and notified of patient's pending discharge today. [place] to resume [facility]STA. Updated patient information faxed to [place] via [employer]. to follow and assist as needed. Anahi Luong RN/CM
--- NOTE | 2016-04-12 09:00 | NUR ---
IV TO RIGHT WRIST LEAKING. D/C WITH CATHETER INTACT. RESITED TO LEFT WRIST WITH 24G AFTER ONE ATTEMPT. ROCEPHINE UP AT THIS TIME PER DR. OTOOLE.
--- NOTE | 2016-04-12 10:00 | NUR ---
ROCEPHINE COMPLETED. IV TO LEFT WRIST D/C WITH CATHETER INTACT.
--- NOTE | 2016-04-12 10:30 | NUR ---
DISCHARGED TO HOME WITH FAMILY AMBULATORY. DISCHARGE INSTURCTIONS GIVEN BOTH VERBALLY AND WRITTEN. ALL QUESTIONS ANSWERED. PATIENT AND FAMILY VERBALIZED UNDERSTANDING OF SAME. NEW MEDS ESCRIBED TO [facility] PER PATIENT REQUEST.
--- NOTE | 2016-04-15 06:09 | DS ---
PATIENT:FRANK CINTRON :31 MEDICAL RECORD: [id number] DISCHARGE SUMMARY ADMISSION DATE: 04/08/16 DISCHARGE DATE: 04/12/16 DISCHARGE DIAGNOSES: 1. Escherichia coli urinary tract infection. 2. Iron deficiency anemia. 3. Osteoarthritis. 4. Hypertension. 5. Hypothyroidism. HOSPITAL COURSE: An 81-year-old female who has had a history of recurrent urinary tract infection due to Escherichia coli. It has become fairly resistant. She had been treated several weeks ago for episode of urosepsis and had improved. Her follow up even my office appeared normal. Blood culture returned the day before her admission showing Escherichia coli. Resistance to multiple medications. I have called her daughter at night, and started on Macrodantin. The following morning, she developed nausea and fever up to 101 and presented to the ED. At that point, there was concern for urosepsis. She was placed on IV ceftriaxone based on her culture and gradually improved with fluids. Her urine now shows resistance to ampicillin, cefazolin, cefepime is sensitive, ceftriaxone is sensitive and is resistant to ciprofloxacin, gentamicin, levofloxacin, piperacillin, tobramycin and Sulfa. That is sensitive to tetracycline orally and nitrofurantoin. At this time, she is clinically improved. Her H&H stabilized at 9.9 and 28. Her previously ____ iron deficiency anemia with negative stools. She will be resumed on oral iron and follow on the even on an outpatient basis. She will discharge home today after a dose of Rocephin was given for home health, home PT. Return to my office in 1 week with UA and CBC. DISCHARGE MEDICATIONS: Ferrous sulfate 325 mg with noon meal, Celebrex 200 mg daily PC, Macrodantin 100 mg p.o. b.i.d., Synthroid 0.1 mg p.o. q.a.m., Catapres 0.1 p.o. q. 6 hours p.r.n. systolic pressure greater than 170, Nexium 20 mg p.o. b.i.d., Cozaar 100 mg p.o. daily, Bystolic 20 mg p.o. daily, Lasix 40 mg p.o. q.a.m., tramadol 50 mg q.6 hours p.r.n. arthritis pain. DIET: Cardiac. ACTIVITY: Progress as tolerated. TRANSINT:[id number] Voice Confirmation ID: [id number] DOCUMENT ID: [id number] OLE OTOOLE MD at 0609 CC: [id number] DICTATION DATE: 04/12/16822 ANALOG IC DESIGN ENGINEER: 04/13/16 0328 DIS IN 04/12/16 [place] [id number] [place] [id number]
== END 2016-04-12 10:30 | disposition home health service (06) | DRG 872 ==
LOC: D.ER 19:13 → D.MS 22:30
PROVIDERS: Emergency Medicine; Physician Assistant; ADMIT Family Medicine
DX: A41.9 Sepsis, unspecified organism (principal); N39.0 Urinary tract infection, site not specified; B96.20 Unspecified Escherichia coli [E. coli] as the cause of diseases classified elsewhere; E87.6 Hypokalemia; K80.20 Calculus of gallbladder without cholecystitis without obstruction; I10 Essential (primary) hypertension; M19.90 Unspecified osteoarthritis, unspecified site; E03.9 Hypothyroidism, unspecified

== ENCOUNTER → 2016-05-02 11:11 | Outpatient (CLI) | payer MEDICARE, OTHER ==
[2016-04-09 13:17] VITALS: BMI 29.2
[~2016-05-02 11:11] MED LIST changes: +FERROUS SULFAT325 MG PO; +FUROSEMIDE20 MG PO; +FUROSEMIDE40 MG PO; +MACRODANTIN100 MG PO; +ULTRAM50 MG PO
[2016-05-02 12:33] LABS: ANION GAP 15.1 mmol/L (8-16); CALCIUM 9.9 mg/dL (8.5-10.1); CARBON DIOXIDE 24.4 mmol/L (21.0-32.0); CREATININE - SERUM 1.1 mg/dL (0.6-1.3); POTASSIUM - SERUM 4.5 mmol/L (3.5-5.1)
== END | disposition home or self-care (01) ==
LOC: D.LABREF 11:11
PROVIDERS: Family Medicine
DX: D64.9 Anemia, unspecified (principal); E83.42 Hypomagnesemia; E87.2 Acidosis

== ENCOUNTER 2016-10-17 15:48 | Emergency (ER) | payer MEDICARE, OTHER ==
[2016-04-09 13:17] VITALS: BMI 29.2
[2016-10-17 16:52] LABS: BASOPHILS 1.7 % (0-2); EOSINOPHILS 1.7 % (0-7); HEMATOCRIT 31.6 % (36.0-48.0); HEMOGLOBIN 10.8 g/dL (12-16); IMMATURE GRANULOCYTES 0.2 % (0-5); LYMPHOCYTES 29.1 % (15-50); MCH 32.3 pg (26.0-34.0); MCHC 34.2 g/dL (31.0-37.0); MCV 94.6 fL (80.0-100.0); MEAN PLATELET VOLUME 8.3 fL (7.4-10.4); NEUTROPHILS 58.3 % (40-80); PLATELET COUNT 195 10x3/uL (130-400); RBC 3.34 10x6/uL (4.00-5.40); RDW 13.1 % (11.5-14.5); WBC 5.3 10x3/uL (4.8-10.8)
[2016-10-17 17:04] LABS: ALBUMIN 3.6 g/dL (3.4-5.0); ALKALINE PHOSPHATASE 75 U/L (46-116); ALT (SGPT) 17 U/L (10-68); BILIRUBIN - TOTAL 0.76 mg/dL (0.2-1.3); CALC OSMOLALITY 261 mosm/kg (275-300); CALCIUM 8.8 mg/dL (8.5-10.1); CARBON DIOXIDE 28.1 mmol/L (21.0-32.0); CHLORIDE - SERUM 94 mmol/L (98-107); CREATININE - SERUM 0.8 mg/dL (0.6-1.3); GLUCOSE 102 mg/dL (74-106); POTASSIUM - SERUM 3.9 mmol/L (3.5-5.1); PROTEIN - SERUM 6.5 g/dL (6.4-8.2); SODIUM 130 mmol/L (136-145); UREA NITROGEN 16 mg/dL (7-18); eGFR NON AFRICAN AMERICAN 72 mL/min (90-120)
[2016-10-17 17:15] LABS: CKMB 0.5 U/L (0.0-3.6); CREATINE KINASE 43 UL (21-215); TROPONIN-I < 0.017 ng/mL (0.000-0.060)
[2016-10-17 18:25] LABS: APPEARANCE CLEAR (CLEAR); BILIRUBIN NEGATIVE (NEGATIVE); COLOR YELLOW (YELLOW); GLUCOSE NEGATIVE (NEGATIVE); KETONE NEGATIVE (NEGATIVE); LEUKOCYTE ESTERASE NEGATIVE (NEGATIVE); NITRITE NEGATIVE (NEGATIVE); PROTEIN NEGATIVE (NEGATIVE); SPECIFIC GRAVITY 1.015 (1.005-1.020); UROBILINOGEN NORMAL (NORMAL)
[2016-10-17 18:28] LABS: EPITHELIAL CELLS 0-5 /hpf (0-5); RED CELLS - URINE 0-5 /hpf (0-5); WHITE CELLS - URINE OCC /hpf (0-5)
== END 2016-10-17 18:58 | disposition home or self-care (01) ==
LOC: D.ER 15:48
PROVIDERS: Family Medicine
DX: I10 Essential (primary) hypertension (principal); R51 Headache; R00.1 Bradycardia, unspecified